=== PATIENT | male | born 1990 | race Caucasian/White ===

== ENCOUNTER 2024-02-23 10:15 | Emergency (ER) | payer OTHER ==
--- NOTE | 2024-02-23 10:31 | ED Physician Documentation ---
PD HPI DYSPNEA - Stated complaint Stated Complaint: SOA,ASTHMA - Chief complaint Chief Complaint: Resp - History obtained from History obtained from: Patient - History of Present Illness Timing - onset: How many days ago (3) Timing - onset during: Rest, Light activity Timing - duration: Days (3) Timing - details: Gradual onset, Still present, Waxing and waning Inciting event(s): Out of meds, Immobilization/travel (moving here from [facility]. Arrived few days ago and staying in cabin rental. Having increased asthma syptoms. No URI symptoms. Out of Albuterol MDI. Does not take daily steroid inhaler or other meds currently.) Worsened by: Exertion, Coughing Associated symptoms: Cough, Wheezing. No: Fever, Chest pain / discomfort Similar symptoms before: Diagnosis (feeling like his asthma flaring up.) Review of Systems Constitutional: denies: Fever, Chills Nose: reports: Congestion. denies: Rhinorrhea / runny nose Throat: denies: Sore throat Cardiac: denies: Chest pain / pressure, Palpitations Respiratory: reports: Dyspnea, Wheezing. denies: Cough PD PAST MEDICAL HISTORY - Past Medical History Past Medical History: Yes Respiratory: Asthma - Past Surgical History Past Surgical History: Yes General: Appendectomy Ortho: Other - Present Medications Home Medications: Ambulatory Orders Medication Instructions Recorded Confirmed Albuterol Sulf [Ventolin Hfa 2 - 3 puffs INH Q4HR PRN #1 each 02/23/24 Inhaler] Cetirizine [ZyrTEC] 10 mg PO DAILY #30 tablet 02/23/24 Fluticasone Propion/Salmeterol 1 each IH BID #1 each 02/23/24 [Fluticasone-Salmeterol 250-50] dexAMETHasone [Decadron] 4 mg PO DAILY #5 tablet 02/23/24 - Allergies Allergies/Adverse Reactions: Allergies Allergy/AdvReac Type Severity Reaction Status Date / Time Sulfa (Sulfonamide Allergy Unknown Verified 02/23/24 10:24 Antibiotics) - Social History Does the pt smoke?: No Smoking Status: Current some day smoker Does the pt drink ETOH?: Yes Does the pt have substance abuse?: No Substance Use and Type: Marijuana - Immunizations Immunizations are current?: Yes - POLST Patient has POLST: No PD ED PE NORMAL - Vitals Vital signs reviewed: Yes - General General: Alert and oriented X 3, Well developed/nourished - HEENT HEENT: Ears normal, Pharynx benign - Neck Neck: Supple, no meningeal sign, No adenopathy - Cardiac Cardiac: RRR, No murmur - Respiratory Respiratory: No respiratory distress. No: Clear bilaterally (exp wheezing noted. able to talk in sentences. ) Results - Vitals Vitals: Oxygen O2 Source Room air PD Medical Decision Making - ED course Complexity details: considered differential (having asthma symptoms from changed location and environmental factors. No URI symptoms per se. Out of albutero. ), d/w patient Departure - Departure Disposition: Home, Self Care Clinical Impression: Exacerbation of asthma Qualifiers: Asthma severity: unspecified severity Asthma persistence: intermittent Qualified Code(s): J45.21 - Mild intermittent asthma with (acute) exacerbation Dyspnea Qualifiers: Dyspnea type: dyspnea on exertion Qualified Code(s): R06.09 - Other forms of dyspnea Condition: Stable Record reviewed to determine appropriate education?: Yes Instructions: Asthma Dc Prescriptions: Albuterol Sulf [Ventolin Hfa Inhaler] 2 - 3 puffs INH Q4HR PRN #1 each PRN Reason: Shortness Of Air/Wheezing dexAMETHasone [Decadron] 4 mg PO DAILY #5 tablet Fluticasone Propion/Salmeterol [Fluticasone-Salmeterol 250-50] 1 each IH BID #1 each Cetirizine [ZyrTEC] 10 mg PO DAILY #30 tablet Comments: If your asthma is being exacerbated because of a new environment, it can be ongoing and take a while to adapt. As such I would recommend not only the short acting albuterol when needed or fairly regularly over the next several days to week but also a short course of oral steroids dexamethasone daily for 5 days followed then by inhaled beta agonist/steroid twice daily over the next month or so. In addition you could take cetirizine antihistamine nightly over the next several weeks to a month. I sent these prescriptions to the [facility] pharmacy here in [place]. Follow-up with your new primary care next month as planned. Forms: PCP List Discharge Date/Time: 02/23/24 11:29
[2024-02-23 10:34] VITALS: BP 123/83; O2SAT 99
[2024-02-23] MEDS: dexAMETHasone 4 MG TABLET PO STA (10:54)
[2024-02-23] MEDS: ALBUTEROL NEB 2.5 MG/3 ML INH STA (10:58)
== END 2024-02-23 11:29 | disposition home or self-care (01) ==
LOC: ED 10:15
DX: J45.21 Mild intermittent asthma with (acute) exacerbation (principal); F17.200 Nicotine dependence, unspecified, uncomplicated; Z79.899 Other long term (current) drug therapy
CPT/HCPCS: 94640; 94664; 99283; 99284; J8540